=== PATIENT | female | born 1970 | race Caucasian/White ===

== ENCOUNTER 2021-02-10 12:50 | Emergency (ER) | payer OTHER, SELFPAY ==
[2021-02-10 12:51] VITALS: BP 139/89; PULSE 97; RESP 15; TEMP 36.7; O2SAT 96; BMI 25.4
--- NOTE | 2021-02-10 13:51 | ED.RN ---
lwbs [id number]. pt was walked into room and heard overhead code blue alarm. she then stated it stopped bleeding. i think i'll go home. pt was walked from department and paperwork given to registration.
== END 2021-02-10 13:08 | disposition left against medical advice (07) ==
DX: Z53.21 Procedure and treatment not carried out due to patient leaving prior to being seen by health care provider (principal)

== ENCOUNTER 2024-09-09 09:59 | Emergency (ER) | payer OTHER, SELFPAY ==
[2024-09-09] VITALS (7 sets, daily range): BP systolic 134–158; BP diastolic 79–93; PULSE 84–128; RESP 15–22; TEMP 36.6–36.7; O2SAT 98–100; BMI 28.1
--- NOTE | 2024-09-09 10:29 | RAD_ITS ---
INDICATION: Injury/Pain EXAMINATION/TECHNIQUE: X-RAY - XR Hip Unilateral with Pelvis when performed; 2-3 Views COMPARISON: No relevant prior comparison study available FINDINGS: PELVIC BONES: No displaced fracture, destructive or sclerotic lesions. Note that overlapping bowel shadows may however obscure fine detail. Sacroiliac joints are unremarkable. No widening of the pubic symphysis. HIPS: The articular structures are unremarkable. No displaced fracture seen in this frontal view. SOFT TISSUES: No soft tissue swelling or gas. RAD/HIP, UNI W/ Pelvis 2-3 Views IMPRESSION: No evidence of displaced pelvic or hip fracture. Electronically Signed: Leonor Marshall MD at 12:41 EST ,
--- NOTE | 2024-09-09 10:30 | ED.VIS.FALL ---
HPI HPI - Fall History of Present Illness Chief Complaint: Lower Extremity Injury Informant: patient Occured/Mechanism Occurred: Today Mechanism/Context: Yes slip Fall down steps #: 3-4 Usually ambulates: Without assistance Pain/Injury Location: Left lower ribs, left hip and buttock Pain Location: back Quality of Pain: Sharp Worsened by: Movement Relieved by: Rest Associated Symptoms Associated Symptoms: Negative for Parasthesias, Weakness, Loss of function, Inability to ambulate, Loss of consciousness or Amnesia Narrative Narrative: Patient presents with left hip pain that began after a fall that occurred today. Patient slipped while going down some steps. Patient states she went down 3-4 steps and landed on her left buttocks and hit her left lower back. Patient denies any head injury or loss of consciousness. Patient states her pain is worse with any movement. Patient denies any paresthesias or weakness. [facility] Medical History (Updated 09/09/24 @ 11:[address] Ian Corcoran, ) Hypertension Lumbar strain Thoracic myofascial strain Home Medications ?Medication ?Instructions ?Recorded ?Last Taken ?Type lisinopril 10 mg tablet 10 mg PO QDAY 04/10/24 Unknown History oxycodone-acetaminophen 5 mg-325 1 tab PO Q6H PRN PRN Pain 3 days 09/09/24 Unknown Rx mg tablet #12 TABLETS Allergy/AdvReac Type Severity Reaction Status Date / Time No Known Allergies Allergy Verified 09/09/24 10:00 Surgical History (Updated 09/09/24 @ 11:[address] Ian Corcoran DO) History of hysterectomy Social History (Updated 09/09/24 @ 11:[address] Ian Corcoran DO) Smoking Status: Never smoker alcohol intake: current alcohol intake frequency: a few times a week Alcohol type: wine ROS ROS ED Constitutional Constitutional ED: Denies chills or fever(s) Eyes Eyes: Denies blurry vision or change in vision ENT ENT ED: Denies rhinorrhea or sore throat Cardiovascular Cardiovascular: Denies chest pain or palpitations Respiratory/Chest Respiratory/Chest: Denies cough or dyspnea Gastrointestinal Gastrointestinal: Denies nausea or vomiting Genitourinary Genitourinary ED: Denies dysuria or hematuria Musculoskeletal Musculoskeletal: Reports back pain; Denies neck pain Integumentary Denies abscess or rash Neurologic Neurologic: Denies headache(s) or weakness Allergic/Immunologic Allergic/Immunologic ED: Denies mouth swelling or urticaria EXAM Physical Exam Const Vital Signs: 09/09/24 10:00 09/09/24 11:58 Temperature 97.8 F 98.1 F Temperature Source Oral Temporal Pulse Rate 128 H 89 Respiratory Rate 22 H 15 Blood Pressure 158/79 H 134/79 H Blood Pressure Mean 105 97 Pulse Ox 100 98 Oxygen Delivery Method Room Air Room Air Positive well nourished and well developed General Appearance ED: well developed and NAD HEENT Reports normocephalic atraumatic Resp normal respiratory effort and clear to auscultation bilaterally Cardio regular rate and regular rhythm Back/Spine Back/Spine Narrative: There is tenderness over the left posterior ribs. There is no bony crepitance or step-off. There is a superficial abrasion over this area. There is no bleeding noted. General Back: CVA tenderness left Extremity Extremity Narrative: There is tenderness and a hematoma over the posterior aspect of the left hip and buttock area. There is no obvious deformity noted. There is no bony crepitance or step-off. Range of motion was limited in all motions of the left hip secondary to pain. Neuro oriented x3, CN's II-XII intact bilaterally, moves all extremities, no focal motor deficits and no sensory deficits noted Cecilia Coma Scale: document GCS findings Spontaneous Obeys Commands Oriented 15 Sensorium / Orientation: alert Motor Exam: strength 5/5 throughout Psych mental status grossly normal MDM MDM MDM Narrative Medical decision making narrative: Differential diagnosis includes hip fracture, contusion, rib fracture, pneumothorax, and muscle strain. X-rays of the left hip will be obtained to assess for hip fracture. X-rays of the left ribs will be obtained to assess for rib fracture or pneumothorax. Radiography Diagnostic Testing: Clinical Impression(s) from Imaging Studies Hip/Pelvis X-Ray 09/09/24 10:29 IMPRESSION: No evidence of displaced pelvic or hip fracture. Electronically Signed: Leonor Marshall MD at 12:41 EST , Ribs w/Chest X-Ray 09/09/24 10:45 IMPRESSION: Left ninth and 10th rib fractures. Electronically Signed: Leonor Marshall MD at 12:40 EST , X-rays of the left ribs were obtained. There are 3 views. On my independent interpretation, there are nondisplaced fractures of the left ninth and 10th ribs. There is no pneumothorax noted. Radiologist also interpreted the x-rays and agrees. X-rays of the left hip were obtained. There are 3 views. On my independent interpretation, there is no acute fracture or dislocation noted. There is no pelvic fracture noted. Radiologist also interpreted the x-rays and agrees. Treatment and Re-Evaluation Narrative: Patient was given a dose of oxycodone here. Patient was given a repeat dose of oxycodone. Patient advised of her findings. Patient was instructed to use ice to the area. Patient was instructed to take 10-15 deep breaths every hour while awake to prevent atelectasis and pneumonia. Patient was given a prescription for Percocet. Patient was instructed to follow-up with her primary care physician in 5 to 7 days. Patient was instructed return if worse in any way. Patient understood and was agreeable with the plan. All questions were answered. Discharge Plan Triage Chief Complaint: Lower Extremity Injury ED Provider: Ian Corcoran Dx/Rx/DC Orders Clinical Impression: Multiple fractures of ribs, left side, initial encounter for closed fracture, Contusion of left hip region, Fall Instructions: ED Rib Fracture, ED Hip Contusion Prescriptions: New oxycodone-acetaminophen 5-325 mg tablet 1 tab PO Q6H PRN PRN (Reason: Pain) 3 Days Qty: 12 0RF No Action lisinopril 10 mg tablet 10 mg PO QDAY Primary Care Provider: Care Physician,No Primary Referrals: Care Physician,No Primary [Primary Care Provider] - Print Language: Macedonian Disposition Disposition: Home, Self Care
[2024-09-09] MEDS: oxyCODONE 5 MG Tablet PO ×2 (10:41→11:53)
--- NOTE | 2024-09-09 10:45 | RAD_ITS ---
INDICATION: trauma EXAMINATION/TECHNIQUE: X-RAY - XR Ribs Unilateral W/ PA Chest Min 3 Views COMPARISON: No relevant prior comparison study available FINDINGS: SOFT TISSUES: No soft tissue swelling or gas. BONES: There are left ninth and 10th posterior lateral rib fractures with mild medial and inferior displacement of the distal ribs. No sclerotic or destructive changes observed. VISUALIZED LUNGS: Clear. No pneumothorax. RAD/Ribs Uni Min 3V w/PA Chest IMPRESSION: Left ninth and 10th rib fractures. Electronically Signed: Leonor Marshall MD at 12:40 EST ,
== END 2024-09-09 14:56 | disposition home or self-care (01) ==
PROVIDERS: Emergency Provider Emergency Medicine; Visit Provider Emergency Medicine
DX: S22.42XA Multiple fractures of ribs, left side, initial encounter for closed fracture (principal); S70.02XA Contusion of left hip, initial encounter; W10.9XXA Fall (on) (from) unspecified stairs and steps, initial encounter
CPT/HCPCS: 71101; 73502; 99282